=== PATIENT | male | born 1955 | race Caucasian/White ===

== ENCOUNTER 2019-06-01 17:39 | Emergency (ER) | payer OTHER, SELFPAY ==
[2019-06-01 18:09] LABS: #Basophils 0.2 thou/uL (0.0-0.2); #Eosinphils 0.1 thou/uL (0.0-0.7); #Lymphocytes 2.2 thou/uL (1.20-3.40); #Monocytes 1.4 thou/uL (0.11-0.59); #Neutrophils 11.3 thou/uL (1.40-6.50); %Basophils 1.1 % (0.0-1.0); %Eosinophils 0.9 % (0.0-10.0); %Lymphocytes 14.4 % (21.0-51.0); %Monocytes 8.9 % (0.0-10.0); %Neutrophils 74.6 % (42.0-75.0); Hemoglobin 15.8 g/dL (14.0-18.0); Mean Corpuscular Volume 88.2 fL (78.0-98.0); Mean Platelet Volume 7.3 fL (7.4-10.4); Platelet Count 269 thou/uL (130-400); RBC Distribution Width 13.3 % (11.5-14.5); Red Blood Cell (RBC) Count 5.27 mill/uL (4.70-6.10); White Blood Cell (WBC) Count 15.2 thou/uL (4.8-10.8)
[2019-06-01 18:24] LABS: ALT (SGPT) 24 U/L (8-55); Albumin 4.8 g/dL (3.4-4.8); Alkaline Phosphatase 76 U/L (40-150); Anion Gap 19 mmol/L (10-20); BUN (Urea Nitrogen) 21 mg/dL (8.4-25.7); Bilirubin, Total 0.4 mg/dL (0.2-1.2); Calc. Creatinine Clearance 0 mL/min (70-130); Calcium 10.7 mg/dL (7.8-10.44); Carbon Dioxide 21 mmol/L (23-31); Chloride 98 mmol/L (98-107); Estimated GFR-MDRD 26; Globulin 3.5 g/dL (2.4-3.5); Glucose 110 mg/dL (80-115); Potassium 4.6 mmol/L (3.5-5.1); Protein, Total 8.3 g/dL (5.8-8.1); Sodium 133 mmol/L (136-145)
[2019-06-01 18:25] LABS: AST (SGOT) 23 U/L (5-34)
== END 2019-06-01 20:36 | disposition short-term general hospital (02) ==
LOC: SCSER 17:39
DX: E86.0 Dehydration (principal); N17.9 Acute kidney failure, unspecified; I10 Essential (primary) hypertension; F17.210 Nicotine dependence, cigarettes, uncomplicated; Z79.899 Other long term (current) drug therapy
CPT/HCPCS: 80053; 82550; 85025; 96360; 96361